=== PATIENT | female | born 1950 | race Caucasian/White ===

== ENCOUNTER → 2017-03-29 | Outpatient (CLI) | payer MEDICARE ==
[~2017-03-29] VITALS: Ht 160 cm; Wt 65.0 kg
[~2017-03-29] MED LIST: ACET1SUS; ALBU.5I NEB; ALBUAER3 INH; ALPR.5 PEG; AMLO10 PEG; AMLO5TAB2 PO; AMOX500C PO; Acetaminophen 650 Mg/20 Ml Liq PEG; CYAN1000P IM; DOXY1CAP91; ESTR0.62 VAGINAL; FENO145T2 PO; FENT100D T-DERMAL; FIORINAL2 PO; HEPA10003 SQ; HEPA5000; HYDR-3580 PO; IPRA0.02 NEB; KETAMINE HCL 500 MG/5 ML VIAL ONE; LACTATED RINGER'S 1,000 ML BAG IV ONE; LEVE100S PO; MEDR4PAK PO; MIRA50TA PO; NYST15T TOPICAL; PROM10SO PO; PROPOFOL 200 MG/20 ML AMP IV ONE; PROT40TA PO
--- NOTE | 2017-03-29 11:43 | GIPROC ---
[facility] [address] [facility]. [facility], [address] EGD PROCEDURE REPORT EXAM DATE: 03/29/2017 PATIENT NAME: Joyce Saunders MR #: [id number] BIRTHDATE: 1950 ATTENDING: Bonilla Sevilla MD ORDER #: [id number] [employer] TAX COLLECTOR: Marely Covarrubias RN STATUS: outpatient INDICATIONS: The patient is a 66 yr old female here for an EGD due to epigastric abdominal pain, nausea, and vomiting PROCEDURE PERFORMED: EGD w/ biopsy MEDICATIONS: Per Anesthesia and None. TOPICAL ANESTHETIC: CONSENT: The patient understands the risks and benefits of the procedure and understands that these risks include, but are not limited to: sedation, allergic reaction, infection, perforation and/or bleeding. Alternative means of evaluation and treatment include, among others: physical exam, x-rays, and/or surgical intervention. The patient elects to proceed with this endoscopic procedure. medical equipment was checked for proper function. Hand hygiene and appropriate measures for infection prevention was taken. After the risks, benefits and alternatives of the procedure were thoroughly explained, Informed consent was verified, confirmed and timeout was successfully executed by the treatment team. The patient was anesthetized with topical anesthesia and the Pentax EG-[id number] endoscope was introduced through the mouth and advanced to the second portion of the duodenum. Retroflexed views revealed no abnormalities The gastroscope was then slowly withdrawn and removed. ESOPHAGUS: The mucosa of the esophagus appeared normal. STOMACH: There was erythematous moderate gastritis in the gastric antrum. A biopsy was performed using cold forceps. Sample sent for histology. G tube in stomach. DUODENUM: A small angiodysplastic lesion with no bleeding found in the duodenal bulb. ADVERSE EVENTS: There were no complications. IMPRESSIONS: 1. The esophagus appeared normal 2. There was erythematous gastritis in the gastric antrum; biopsy was performed 3. G tube in stomach 4. Small angiodysplastic lesion with no bleeding found in the duodenal bulb 5. Retroflexed views revealed no abnormalities RECOMMENDATIONS: 1. Await biopsy results. Biopsy results will not be ready for 7-10 days. If you don't hear from us in two weeks, call our office for biopsy results. 2. Anti-reflux regimen 3. Continue PPI PATIENT CONDITION: stable DISPOSITION: Inpatient REPEAT EXAM: Return 3 years EGD pending biopsy results Bonilla Sevilla MD eSigned: Bonilla Sevilla MD 03/29/2017 11:43 AM cc: PATIENT NAME: Joyce Saunders MR#: [id number]
[2017-03-29 11:50] VITALS: TEMP 97.5
[2017-03-29 12:05] VITALS: BP 138/62; PULSE 89; RESP 20; O2SAT 99
--- NOTE | 2017-03-29 12:39 | EKG ---
Date Performed: 03/29/2017 Time Performed: 11:01:35 PTAGE: 66 years EKG: SINUS TACHYCARDIA MODERATE VOLTAGE CRITERIA FOR LVH, CONSIDER NORMAL VARIANT ABNORMAL RHYTH M ECG NO PREVIOUS TRACING DOCTOR: Ameya Laura Interpretating Date/Time 03/29/2017 12:38:33
== END ==
LOC: HEND 10:44
PROVIDERS: ATTEND Internal Medicine Gastroenterology
DX: R11.0 Nausea (principal)
CPT/HCPCS: 88305; 88312; 93005; J7120